=== PATIENT | male | born 1985 | race African-American/Black ===

== ENCOUNTER 2020-01-22 18:25 | Emergency (ER) | payer OTHER ==
--- NOTE | 2020-01-22 18:50 | ER Document Report ---
ED Medical Screen (RME) - General Chief Complaint: Urinary Problem Stated Complaint: BLOOD IN URINE Notes: Patient is a 34-year-old -[place] male with a history of PTSD who presents the emergency department the chief complaint of urinating blood. The patient states that he is a athletic individual who exercises frequently. He states that he just recently increased his exercise program. He states he started noticing earlier that he was urinating what appeared like blood. He states he has a funny sensation in the abdomen it feels weird but no overt pain anywhere. Denies any sore muscles. States he was worried about his kidneys but denies any back pain. States he [facility] and they advised to either come here or be seen in the morning. He was concerned so he came for evaluation. I have treated and performed a rapid initial assessment of this patient. A comprehensive ED assessment and evaluation of the patient, analysis of test results and completion of medical decision making process will be conducted by additional ED providers. PHYSICAL EXAMINATION: GENERAL: Well-appearing, well-nourished and in no acute distress. A&Ox4. Answers questions appropriately. TRAVEL OUTSIDE OF THE [place] IN LAST 30 DAYS: No - Related Data Allergies/Adverse Reactions: No Known Allergies Allergy (Verified 01/22/20 18:45) Past Medical History - Past Medical History Cardiac Medical History: Reports: Hx Hypercholesterolemia, Hx Hypertension Denies: Hx DVT, Hx Heart Attack Psychiatric Medical History: Reports: Hx Depression - Immunizations Immunizations up to date: Yes Hx Diphtheria, Pertussis, Tetanus Vaccination: No Physical Exam - Vital signs Vitals: Temp Pulse Resp BP Pulse Ox 97.9 F 70 18 154/85 H 99 01/22/20 18:31 01/22/20 18:31 01/22/20 18:31 01/22/20 18:31 01/22/20 18:31 Course - Vital Signs Vital signs: Temp Pulse Resp BP Pulse Ox 97.9 F 70 18 154/85 H 99 01/22/20 18:31 01/22/20 18:31 01/22/20 18:31 01/22/20 18:31 01/22/20 18:31
[2020-01-22 19:36] LABS: ABSOLUTE BASOPHILS # (AUTO) 0.1 10^3/uL (0.0-0.2); ABSOLUTE EOSINOPHILS # (AUTO) 0.1 10^3/uL (0.0-0.6); ABSOLUTE LYMPHOCYTES (AUTO) 2.7 10^3/uL (0.5-4.7); ABSOLUTE MONOCYTES (AUTO) 0.5 10^3/uL (0.1-1.4); ABSOLUTE NEUT (AUTO) 3.6 10^3/uL (1.7-8.2); BASOPHILS % (AUTO) 0.8 % (0-2); EOSINOPHILS % (AUTO) 0.8 % (0-6); HEMATOCRIT 43.7 % (37.9-51.0); HEMOGLOBIN 15.6 g/dL (13.5-17.0); LYMPHOCYTES % (AUTO) 38.5 % (13-45); MEAN CORPUSCULAR HEMOGLOBIN 32.6 pg (27.0-33.4); MEAN CORPUSCULAR HGB CONC 35.7 g/dL (32.0-36.0); MEAN CORPUSCULAR VOLUME 91 fl (80-97); MONOCYTES % (AUTO) 7.7 % (3-13); PLATELET COUNT 256 10^3/uL (150-450); RED BLOOD COUNT 4.78 10^6/uL (4.35-5.55); RED CELL DISTRIBUTION WIDTH 12.6 % (11.5-14.0); SEGMENTED NEUTROPHILS % (AUTO) 52.2 % (42-78); TOTAL CELLS COUNTED % (AUTO) 100 %; WHITE BLOOD COUNT 6.9 10^3/uL (4.0-10.5)
[2020-01-22 20:01] LABS: ALBUMIN 4.8 g/dL (3.5-5.0); ALKALINE PHOSPHATASE 66 U/L (38-126); ANION GAP 9 (5-19); ASPARTATE AMINO TRANSFERASE 37 U/L (17-59); BILIRUBIN,TOTAL 0.8 mg/dL (0.2-1.3); BLOOD UREA NITROGEN 17 mg/dL (7-20); CALCIUM 9.7 mg/dL (8.4-10.2); CARBON DIOXIDE 27 mmol/L (22-30); CHLORIDE 99 mmol/L (98-107); CREATINE KINASE 362 U/L (55-170); GLUCOSE 98 mg/dL (75-110); POTASSIUM 4.8 mmol/L (3.6-5.0); TOTAL PROTEIN 8.2 g/dL (6.3-8.2)
[2020-01-22 20:15] LABS: APPEARANCE,URINE CLOUDY; BILIRUBIN,URINE NEGATIVE (NEGATIVE); GLUCOSE, URINE NEGATIVE (NEGATIVE); KETONES,URINE NEGATIVE (NEGATIVE); PROTEIN,URINE 100 mg/dL (NEGATIVE); URINE SPECIFIC GRAVITY 1.024; UROBILINOGEN,URINE NEGATIVE mg/dL (<2.0)
[2020-01-22 20:18] LABS: COLOR,URINE AMBER
[2020-01-22] MEDS ORDERED: RINGERS SOLUTION,LACTATED 1,000 ML IV ONE (20:24)
--- NOTE | 2020-01-22 21:05 | ER Document Report ---
ED GI/ - General Chief Complaint: Urinary Problem Stated Complaint: BLOOD IN URINE Time Seen by Provider: 01/22/20 20:06 Primary Care Provider: RADHA MALAGON [Primary Care Provider] - Follow up tomorrow (Call tomorrow for a follow-up appointment.) Mode of Arrival: Ambulatory Information source: Patient Notes: 34-year-old male past medical history significant for PTSD presents to the emergency room complaining of hematuria that started this morning around 7 AM. Nausea, vomiting, no abdominal or flank pain. No previous history of hematuria. Patient states he has been exercising more than normal recently increasing his runs to at least 4 miles a day 2-3 times a day. States he drinks minimal water maybe 3-4 bottles a day. Does complain of some lower abdominal cramping. No history of rhabdomyolysis. TRAVEL OUTSIDE OF THE [place] IN LAST 30 DAYS: No - Related Data Allergies/Adverse Reactions: No Known Allergies Allergy (Verified 01/22/20 18:45) Past Medical History - General Information source: Patient - Social History Smoking Status: Never Smoker Chew tobacco use (# tins/day): No Frequency of alcohol use: Social Drug Abuse: Marijuana Family History: Reviewed & Not Pertinent Patient has homicidal ideation: No - Past Medical History Cardiac Medical History: Reports: Hx Hypercholesterolemia, Hx Hypertension Denies: Hx DVT, Hx Heart Attack Psychiatric Medical History: Reports: Hx Depression - Immunizations Immunizations up to date: Yes Hx Diphtheria, Pertussis, Tetanus Vaccination: No Review of Systems - Review of Systems Constitutional: No symptoms reported Cardiovascular: No symptoms reported Respiratory: No symptoms reported Gastrointestinal: Abdominal pain Genitourinary: Hematuria Musculoskeletal: Muscle pain Skin: No symptoms reported Neurological/Psychological: No symptoms reported -: Yes All other systems reviewed and negative Physical Exam - Vital signs Vitals: Temp Pulse Resp BP Pulse Ox 97.9 F 70 18 154/85 H 99 01/22/20 18:31 01/22/20 18:31 01/22/20 18:31 01/22/20 18:31 01/22/20 18:31 - Notes Notes: VITAL SIGNS: Within normal limits. GENERAL: Mild acute distress, non-toxic appearance. HEAD: Normal with no signs of head trauma. EYES: PERRLA, EOMI, conjunctiva normal, no discharge. EARS: Hearing grossly intact. NOSE: Normal. THROAT: Oropharynx is normal. NECK: Normal range of motion, no tenderness, supple, no lymphadenopathy, No adenopathy, no JVD. CHEST: Clear breath sounds bilaterally. No wheezes, rales, or rhonchi. CARDIAC: Regular rate and rhythm. S1 and S2, without murmurs, gallops, or rubs. VASCULAR: No Edema. Peripheral pulses normal and equal in all extremities. ABDOMEN: Normal and soft with no tenderness, no masses or pulsatile masses. No organomegaly. Positive bowel sounds x4. No CVA tenderness noted bilaterally. GASTROINTESTINAL: Bowel sounds normal GENITOURINARY: Normal, No tenderness LYMPATHTIC: No lymphadenopathy noted. MUSCULOSKELETAL: Good range of motion of all major joints. Extremities without clubbing, cyanosis or edema. NEUROLOGICAL: Alert and oriented x 3. No focal sensory or strength deficits. Speech normal. Follows commands appropriately. PSYCHIATRIC: Normal Affect, judgement and mood. SKIN: Normal appearance with no rashes or lesions. Course - Re-evaluation Re-evalutation: 01/22/20 21:04 Reviewed lab results with patient. Counseled patient on need for IV fluids. Patient [facility] Patient was counseled need to make sure he follows up tomorrow as discussed. Will hydrate and discharge home with outpatient follow-up. Staffed case with my attending ED physician Dr. Collins who agrees with plan of care. 01/22/20 21:57 Patient with decreased hematuria upon urination. Counseled on the need to drink 8 to 10 glasses of water a day. He is to follow-up in the next 1 to 2-day with his doctor's office as discussed. Patient states he has an appointment tomorrow with his primary care physician. Patient was given strict return to the emergency room guidelines. Return for any new or worsening symptoms. All questions were answered. Patient verbalized understanding and agrees with plan of care. 01/22/20 23:19 - Vital Signs Vital signs: Temp Pulse Resp BP Pulse Ox 97.8 F 72 17 138/79 H 100 01/22/20 22:08 01/22/20 22:08 01/22/20 22:08 01/22/20 22:08 01/22/20 22:08 - Laboratory Result Diagrams: 01/22/20 19:20 01/22/20 19:20 Laboratory results interpreted by me: 01/22/20 01/22/20 19:20 19:20 Sodium 135.4 L Creatine Kinase 362 H Urine Protein 100 H Urine Blood LARGE H Urine Ascorbic Acid 20 H Discharge - Discharge Clinical Impression: Hematuria Qualifiers: Hematuria type: gross Qualified Code(s): R31.0 - Gross hematuria Condition: Stable Disposition: HOME, SELF-CARE Instructions: Hematuria ([facility]) Additional Instructions: You need to to drink at least 10 to 12 glasses of water per day you need to follow-up with your doctor's office in the next 1 to 2 days for repeat urine. Return to the emergency room for any new or worsening symptoms. [facility]errals: [facility] [Primary Care Provider] - Follow up tomorrow (Call tomorrow for a fol low-up appointment.)
[2020-01-22 22:42] VITALS: BP 138/79
== END 2020-01-22 22:42 | disposition home or self-care (01) ==
LOC: ER 18:25
DX: R31.0 Gross hematuria (principal); R10.30 Lower abdominal pain, unspecified; F12.10 Cannabis abuse, uncomplicated; I10 Essential (primary) hypertension; M79.10 Myalgia, unspecified site
CPT/HCPCS: 99283; 96360; 36415; 82550; 85025; 80053; 81001; J7120